=== PATIENT | female | born 2005 | race Hispanic/Latino ===

== ENCOUNTER 2025-02-27 15:51 | Emergency (ER) | payer SELFPAY ==
[~2025-02-27] VITALS: Ht 162.6 cm; Wt 82.6 kg
[~2025-02-27 15:51] MED LIST: ALLEGRA ALLERGY60 MG PO
[2025-02-27 16:15] VITALS: TEMP 99.4
[2025-02-27] MEDS: DEXAMETHASONE 4 MG TAB PO STA (16:33)
[2025-02-27] MEDS: DIPHENHYDRAMINE HCL 25 MG CAP PO ONE (16:34)
[2025-02-27] MEDS: FAMOTIDINE 20 MG TAB PO ONE (16:35)
[2025-02-27 17:15] VITALS: PULSE 99; RESP 16; O2SAT 100
== END 2025-02-27 17:15 | disposition home or self-care (01) ==
LOC: ER 16:05
DX: L74.0 Miliaria rubra (principal)
CPT/HCPCS: 99284; J8540